=== PATIENT | male | born 1985 | race Asian ===

== ENCOUNTER 2023-09-26 05:05 | Emergency (ER) | payer OTHER ==
[~2023-09-26] VITALS: Ht 190.5 cm; Wt 86.3 kg
[2023-09-26] MEDS ORDERED: KETOROLAC TROMETH 30 MG/ML 1ML VIAL IV ONE (06:30)
[2023-09-26] MEDS ORDERED: SODIUM CHLORIDE 0.9% 1,000 ML IVB ONE (06:30)
[2023-09-26 07:28] LABS: Chloride 107 mmol/L (98-107); Potassium 3.8 mmol/L (3.5-5.1); Sodium 141 mmol/L (136-145)
[2023-09-26 07:29] LABS: Anion Gap 8 (5-15); Calcium 9.7 mg/dL (8.5-10.1); Carbon Dioxide 26 mmol/L (20-30)
[2023-09-26 07:34] LABS: BUN/Creatinine Ratio 8.9 (10.0-20.0); Blood Urea Nitrogen 11 mg/dL (9-23); Glucose 91 mg/dL (74-106)
[2023-09-26] MEDS ORDERED: IBU600T PO (07:36)
[2023-09-26 07:38] VITALS: BP 106/67; PULSE 75; RESP 18; TEMP 98.7; O2SAT 96
[2023-09-26 07:43] LABS: Basophils # (auto) 0 10 ^3/uL (0-0.2); Basophils % (auto) 0.6 % (0.0-2.0); Eosinophils # (auto) 0.2 10 ^3/uL (0-0.8); Eosinophils % (auto) 3.5 % (0.0-7.0); Hematocrit 45.2 % (41.0-53.0); Hemoglobin 15.1 g/dL (13.5-17.5); Lymphocytes # (auto) 1.7 10 ^3/uL (0.4-5.4); Lymphocytes % (auto) 32.8 % (10.0-50.0); Mean Corpuscular Hemoglobin 29.7 pg (28.0-32.0); Mean Corpuscular Hgb Conc. 33.5 g/dL (32.0-36.0); Mean Corpuscular Volume 88.8 fL (80.0-100.0); Monocytes # (auto) 0.4 10 ^3/uL (0-1.3); Monocytes % (auto) 8.6 % (0.0-12.0); Neutrophils # (auto) 2.8 10 ^3/uL (1.6-8.6); Neutrophils % (auto) 54.5 % (37.0-80.0); Red Blood Cells 5.09 10^6/uL (4.5-5.90); Red Cell Distribution Width 13.2 % (11.8-14.3); White Blood Cell 5.1 10^3/uL (4.4-10.8)
== END 2023-09-26 09:10 | disposition home or self-care (01) ==
LOC: ER 05:05
DX: R10.31 Right lower quadrant pain (principal)
CPT/HCPCS: 36415; 74018; 80048; 85025; 96361; 96374; 99284; J1885; J7030